=== PATIENT | female | born 1970 | race Caucasian/White ===

== ENCOUNTER 2016-08-29 19:16 | Emergency (ER) | payer OTHER ==
[2016-08-29 19:35] VITALS: BP 132/85; PULSE 73; TEMP 98; BMI 51.0
[2016-08-29 20:42] LABS: URINE APPEARANCE CLEAR; URINE BILIRUBIN NEGATIVE (NEGATIVE); URINE COLOR COLORLESS; URINE GLUCOSE (UA) NEGATIVE (NEGATIVE); URINE KETONE NEGATIVE (NEGATIVE); URINE LEUK ESTERASE NEGATIVE (NEGATIVE); URINE NITRITE NEGATIVE (NEGATIVE); URINE PROTEIN NEGATIVE (NEGATIVE); URINE UROBILINOGEN NEGATIVE E.U./dl (0.2-1.0)
[2016-08-29 20:49] LABS: URINE BLOOD 1+ (NEGATIVE)
[2016-08-29 20:52] LABS: BASOPHIL 0.5 % (0-2.0); EOSINOPHIL 2.7 % (0-4.5); MCHC 31.2 g/dl (32.0-36.0); MEAN CELL VOLUME 70.3 fl (80-96); MEAN PLT VOLUME 7.6 fl (7.5-11.1); NEUTROPHILS 68.4 % (42.8-82.8); PLATELET COUNT 310 K/MM3 (134-434); RDW 16.7 % (11.6-15.6); WHITE BLOOD COUNT 8.6 K/mm3 (4.0-10.0)
[2016-08-29] MEDS ORDERED: morphine CARPU-JECT 4 MG/1 ML DISP.SYRIN IVPUSH ONE (21:19)
[2016-08-29] MEDS ORDERED: ONDANSETRON 4 MG/2 ML VIAL IVPUSH ONE (21:19)
[2016-08-29 21:31] LABS: ALBUMIN 3.9 g/dl (3.4-5.0); ALK PHOS 73 U/L (45-117); ANION GAP 10 (8-16); BILIRUBIN,TOTAL 0.4 mg/dL (0.2-1.0); CALCIUM 9.4 mg/dL (8.5-10.1); CO2 27 mmol/L (21-32); COCKROFT - GAULT 228.905; CREATININE 0.6 mg/dL (0.55-1.02); GLUCOSE,RANDOM 102 mg/dL (74-106); SGOT/AST 23 U/L (15-37); SGPT/ALT 31 U/L (12-78); TOT PROT 7.1 g/dl (6.4-8.2)
--- NOTE | 2016-08-29 21:43 | PDOC ---
[id number] 4d PAIN, ACUTE Time Seen by Provider: 08/29/16 19:40 History Source: Patient Exam Limitations: No Limitations - History of Present Illness Initial Comments: 08/29/16 21:43 CHIEF COMPLAINT: Abdominal pain HISTORY OF PRESENT ILLNESS: This is a 46 year old female who presents ambulatory to the ED complaining of one month of upper abdominal pain. She reports that she was seen by her PCP at [address], sent for an ultrasound, and diagnosed with an "inflamed and fatty liver." She was referred to GI and has an appointment on 10/15, but presents to the ED today because of unbearable pain. The pain is located in the left upper quadrant, associated with nausea, and seems to be worse with eating. She denies fevers/chills, constipation/ diarrhea, vomiting, dysuria, or any other symptoms. She has not yet tried any medications for the pain. Vital signs on arrival are unremarkable. Surgical history includes cholecystectomy and appendectomy. REVIEW OF SYSTEMS: GENERAL/CONSTITUTIONAL: No fever or chills. No weakness. No weight change. HEAD, EYES, EARS, NOSE AND THROAT: No change in vision. No ear pain or discharge. No sore throat. CARDIOVASCULAR: Intermittent chest pain and dyspnea on exertion (e.g. with climbing stairs) for about one month. RESPIRATORY: No cough or wheezing. GASTROINTESTINAL: See HPI. GENITOURINARY: No dysuria, frequency, or change in urination. MUSCULOSKELETAL: No joint or muscle swelling or pain. No neck or back pain. SKIN: No rash or easy bruising. NEUROLOGIC: No headache, vertigo, loss of consciousness, or loss of sensation. PSYCHIATRIC: No depression or anxiety. ENDOCRINE: No increased thirst. No abnormal weight change. HEMATOLOGIC/LYMPHATIC: No anemia, easy bleeding, or history of blood clots. ALLERGIC/IMMUNOLOGIC: No hives or skin allergy. No latex allergy. PHYSICAL EXAM: GENERAL: The patient is awake, alert, and fully oriented, in no acute distress. ENT: Pupils equal, round and reactive to light, extraocular movements intact, sclera anicteric, conjunctiva clear. Neck supple. LUNGS: Clear to auscultation bilaterally. Normal excursion. No respiratory distress or use of accessory muscles. CV: RRR, S1/S2, no MRG. Cap refill < 2 sec. ABDOMEN: Soft, obese, tender to palpation in LLQ and LUQ. EXTREMITIES: Normal range of motion, no edema. NEUROLOGICAL: Normal speech, normal gait. CN II-XII grossly intact. PSYCH: Normal mood, normal affect. SKIN: Warm, dry, normal turgor, no rashes or lesions noted. Past History - Past Medical History Allergies/Adverse Reactions: Allergies Allergy/AdvReac Type Severity Reaction Status Date / Time No Known Drug Allergies Allergy Verified 08/29/16 19:34 Asthma: No Cancer: No Cardiac Disorders: No Diabetes: No HTN: No Seizures: No Thyroid Disease: No - Surgical History Appendectomy: Yes Cholecystectomy: Yes - Psycho/Social/Smoking Cessation Hx Suicidal Ideation: No Smoking History: Never smoked Hx Alcohol Use: No Drug/Substance Use Hx: No Substance Use Type: None Hx Substance Use Treatment: No *Physical Exam - Vital Signs Last Vital Signs Temp Pulse Resp BP Pulse Ox 98.0 F 73 18 132/85 99 08/29/16 19:32 08/29/16 19:32 08/29/16 19:32 08/29/16 19:32 08/29/16 19:32 ED Treatment Course - LABORATORY CBC & Chemistry Diagram: 08/29/16 19:58 08/29/16 19:58 - ADDITIONAL ORDERS Additional order review: Laboratory Results 08/29/16 08/29/16 08/29/16 19:59 19:59 19:58 Sodium 140 Potassium 4.0 Chloride 103 Carbon Dioxide 27 D Anion Gap 10 BUN 13 D Creatinine 0.6 Creat Clearance w eGFR > 60 Random Glucose 102 Calcium 9.4 Total Bilirubin 0.4 AST 23 ALT 31 Alkaline Phosphatase 73 Total Protein 7.1 Albumin 3.9 Lipase 193 Urine Color Colorless Urine Appearance Clear Urine pH 6.0 Urine Protein Negative Urine Glucose (UA) Negative Urine Ketones Negative Urine Blood 1+ H Urine Nitrite Negative Urine Bilirubin Negative Urine Urobilinogen Negative Ur Leukocyte Esterase Negative Urine HCG, Qual Negative 08/29/16 19:58 RBC 5.00 D MCV 70.3 L MCHC 31.2 L RDW 16.7 H D MPV 7.6 Neutrophils % 68.4 Lymphocytes % 23.7 D Monocytes % 4.7 Eosinophils % 2.7 Basophils % 0.5 - RADIOLOGY Radiology Studies Ordered: Category Date Time Status ABDOMEN & PELVIS CT WITH CONTR [CT] Stat CT Scan 08/29/16 21:19 Ordered CHEST PA & LAT [RAD] Stat Radiology 08/29/16 21:18 Ordered Medical Decision Making - Medical Decision Making 08/29/16 21:48 A/P: 46 year old female with LLQ/LUQ abdominal pain. Also reports exertional chest pain and CA for the past month. 1. EKG 2. CXR 3. Cardiac and abdominal labs 4. CTAP with PO/IV contrast 5. Morphine 4mg IVP for pain, Zofran 4mg IVP for nausea *DC/Admit/Observation/Transfer Diagnosis at time of Disposition: Abdominal pain Qualifiers: Abdominal location: left upper quadrant Qualified Code(s): R10.12 - Left upper quadrant pain - Discharge Dispostion Disposition: HOME Condition at time of disposition: Fair - Referrals Referrals: Isaac Bletre MD [Staff Physician] - Zachery Farmer MD [Staff Physician] - - Patient Instructions Printed Discharge Instructions: DI for Abdominal Pain-Adult Additional Instructions: While in the emergency department today you had a CAT scan of your abdomen and pelvis with contrast by mouth and intravenously. The following is your preliminary report. *Discussed, this report is preliminary. It shows that you had your gallbladder removed previously. You have a fatty liver as you already informed from the ultrasound previously. You spleen shows a minimal to mild prominence best measured at 13 cm in length. 0.7 cm left sided adrenal nodule is noted. It might represent an adenoma. You need to follow-up with your primary care physician and urologist for this finding. If you do not have her urologist, one has been listed for you on your discharge form. The appendix is not definitely visualized on this CAT scan but there are no indirect signs of appendicitis but you had your appendix removed already. 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 As discussed, you MUST lose weight.
[2016-08-29 21:54] LABS: TROPONIN I < 0.02 ng/ml (0.00-0.05)
[2016-08-29] MEDS ORDERED: morphine CARPU-JECT 4 MG/1 ML DISP.SYRIN ONE (21:58)
[2016-08-29] MEDS ORDERED: ONDANSETRON 4 MG/2 ML VIAL ONE (21:59)
--- NOTE | 2016-08-30 01:23 | PDOC ---
*Physical Exam - Vital Signs Last Vital Signs Temp Pulse Resp BP Pulse Ox 98.0 F 73 18 132/85 99 08/29/16 19:32 08/29/16 19:32 08/29/16 19:32 08/29/16 19:32 08/29/16 19:32 - Physical Exam Comments: 08/30/16 01:16 46-year-old female h/o cholecystectomy complaining of left upper and lower quadrant discomfort for approximately 4 weeks. Patient was previously diagnosed with a fatty an inflamed liver via ultrasound. Patient states her abdominal left upper and lower quadrant has subsided tremendously since arriving to the emergency department. The pain is exacerbated after eating but there are no alleviating factors. ED Treatment Course - LABORATORY CBC & Chemistry Diagram: 08/29/16 19:58 08/29/16 19:58 - ADDITIONAL ORDERS Additional order review: Laboratory Results 08/29/16 08/29/16 08/29/16 19:59 19:59 19:58 Sodium Potassium Chloride Carbon Dioxide Anion Gap BUN Creatinine Creat Clearance w eGFR Random Glucose Calcium Total Bilirubin AST ALT Alkaline Phosphatase Creatine Kinase 135 Troponin I < 0.02 B-Natriuretic Peptide 76.96 Total Protein Albumin Lipase Urine Color Colorless Urine Appearance Clear Urine pH 6.0 Urine Protein Negative Urine Glucose (UA) Negative Urine Ketones Negative Urine Blood 1+ H Urine Nitrite Negative Urine Bilirubin Negative Urine Urobilinogen Negative Ur Leukocyte Esterase Negative Urine HCG, Qual Negative 08/29/16 19:58 Sodium 140 Potassium 4.0 Chloride 103 Carbon Dioxide 27 D Anion Gap 10 BUN 13 D Creatinine 0.6 Creat Clearance w eGFR > 60 Random Glucose 102 Calcium 9.4 Total Bilirubin 0.4 AST 23 ALT 31 Alkaline Phosphatase 73 Creatine Kinase Troponin I B-Natriuretic Peptide Total Protein 7.1 Albumin 3.9 Lipase 193 Urine Color Urine Appearance Urine pH Urine Protein Urine Glucose (UA) Urine Ketones Urine Blood Urine Nitrite Urine Bilirubin Urine Urobilinogen Ur Leukocyte Esterase Urine HCG, Qual 08/29/16 19:58 RBC 5.00 D MCV 70.3 L MCHC 31.2 L RDW 16.7 H D MPV 7.6 Neutrophils % 68.4 Lymphocytes % 23.7 D Monocytes % 4.7 Eosinophils % 2.7 Basophils % 0.5 - RADIOLOGY Radiograph Interpretation: 08/30/16 01:18 CAT scan of abdomen and pelvis CT with by mouth and IV contrast shows no CT findings of acute pathology. Status post cholecystectomy. Diffuse hepatic D or ptosis. Minimal to mild prominence of spleen. 0.7 cm left adrenal nodule is seen very likely representing an adenoma. MRI suggested. - Medications Given in the ED: ED Medications Discontinued Medications Generic Name Dose Route Start Last Admin Trade Name Peterson PRN Reason Stop Dose Admin Morphine Sulfate 4 mg 08/29/16 21:19 08/29/16 21:59 Morphine Injection - IVPUSH 08/29/16 21:20 4 mg ONCE ONE Administration Ondansetron HCl 4 mg 08/29/16 21:19 08/29/16 21:59 Zofran Injection IVPUSH 08/29/16 21:20 4 mg ONCE ONE Administration *DC/Admit/Observation/Transfer Diagnosis at time of Disposition: Abdominal pain Qualifiers: Abdominal location: left upper quadrant Qualified Code(s): R10.12 - Left upper quadrant pain - Discharge Dispostion Admit: No - Referrals Referrals: Isaac Beltre MD [Staff Physician] - Zachery Farmer MD [Staff Physician] - - Patient Instructions Printed Discharge Instructions: DI for Abdominal Pain-Adult Additional Instructions: While in the emergency department today you had a CAT scan of your abdomen and pelvis with contrast by mouth and intravenously. The following is your preliminary report. *Discussed, this report is preliminary. It shows that you had your gallbladder removed previously. You have a fatty liver as you already informed from the ultrasound previously. You spleen shows a minimal to mild prominence best measured at 13 cm in length. 0.7 cm left sided adrenal nodule is noted. It might represent an adenoma. You need to follow-up with your primary care physician and urologist for this finding. If you do not have her urologist, one has been listed for you on your discharge form. The appendix is not definitely visualized on this CAT scan but there are no indirect signs of appendicitis but you had your appendix removed already. 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 As discussed, you MUST lose weight.
--- NOTE | 2016-08-30 09:16 | EKG ---
Test Reason : Blood Pressure : / mmHG Vent. Rate : 059 BPM Atrial Rate : 059 BPM P-R Int : 188 ms QRS Dur : 102 ms QT Int : 398 ms P-R-T Axes : 029 -01 -05 degrees QTc Int : 394 ms SINUS BRADYCARDIA OTHERWISE NORMAL ECG NO PREVIOUS ECGS AVAILABLE Confirmed by SANDRA HOLDEN MD ([id number]) on 08/30/2016 9:16:32 AM Referred By: Confirmed By:SANDRA HOLDEN MD
== END 2016-08-30 01:37 | disposition home or self-care (01) ==
LOC: JER 19:16
PROC: 3E033NZ Introduction of Analgesics, Hypnotics, Sedatives into Peripheral Vein, Percutaneous Approach (ICD-10-PCS; principal; 2016-08-29)
PROC: 3E033GC Introduction of Other Therapeutic Substance into Peripheral Vein, Percutaneous Approach (ICD-10-PCS; 2016-08-29)
DX: R10.12 Left upper quadrant pain (principal)
CPT/HCPCS: 36415; 74177-TC; 80053; 81003; 81015; 82550; 83690; 83880; 84484; 84703; 85025; 87086; 93005; 93010; 99282-25